=== PATIENT | female | born 1970 | race Caucasian/White ===

== ENCOUNTER 2019-05-27 17:10 | Emergency (ER) | payer MEDICARE ==
[~2019-05-27] VITALS: Ht 170.2 cm; Wt 90.9 kg
--- NOTE | 2019-05-27 17:15 | NUR ---
PT LEON ALMEIDA FROM [facility] FOR C/O FEVER, MALAISE, BODY ACHES, AND NECK PAIN X1 WEEK. 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 VSS PER EMS, HR 90s. PT AMBULATORY, A&OX4. PT DENIES ANY RECENT TRAVEL. DROPLET PRECAUTIONS IN PLACE.
--- NOTE | 2019-05-27 18:15 | NUR ---
PER ERP, PT DOES NOT NEED TO BE IN NEGATIVE PRESSURE ISOLATION.
[2019-05-27] MEDS ORDERED: IBUPROFEN 600 MG TABLET ONE (18:24)
[2019-05-27] MEDS ORDERED: ONDANSETRON ODT 4 MG ONE (18:24)
[2019-05-27] MEDS ORDERED: ACETAMINOPHEN 500 MG TABLET ONE (18:24)
[2019-05-27] MEDS ORDERED: ONDANSETRON ODT 4 MG PO ONE (18:30)
[2019-05-27] MEDS ORDERED: ACETAMINOPHEN 325 MG TABLET PO ONE (18:30)
[2019-05-27] MEDS ORDERED: IBUPROFEN 600 MG TABLET PO ONE (18:30)
--- NOTE | 2019-05-27 18:35 | NUR ---
PT MEDICATED PER ORDERS. 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
[2019-05-27 18:48] LABS: BASOPHILS # (AUTO) 0.01 x10^3/uL (0-0.1); BASOPHILS % (AUTO) 0 % (0-1); EOSINOPHILS % (AUTO) 0 % (1-7); LYMPHOCYTES # (AUTO) 0.86 x10^3/uL (1-3.4); LYMPHOCYTES % (AUTO) 13 % (22-44); MD NO; MEAN CORPUSCULAR HGB CONC 33.7 g/dL (32.4-35.8); MEAN CORPUSCULAR VOLUME 89.2 fL (80-100); MEAN PLATELET VOLUME 8.2 fL (7.4-10.4); MONOCYTES # (AUTO) 0.42 x10^3/uL (0.2-0.8); MONOCYTES % (AUTO) 6 % (2-9); NEUTROPHILS # (AUTO) 5.21 x10^3/uL (1.8-6.8); NEUTROPHILS % (AUTO) 80 % (42-75); PLATELET COUNT 251 x10^3/uL (130-400); RED BLOOD COUNT 5.21 x10^6/uL (3.82-5.3); RED CELL DISTRIBUTION WIDTH 13.9 % (9.6-15.2)
[2019-05-27 18:54] LABS: ALBUMIN 3.4 g/dL (3.4-5.0); ANION GAP 7 mmol/L (5-15); CALCIUM 8.4 mg/dL (8.5-10.1); CHLORIDE 106 mmol/L (98-107); CREATININE 0.71 mg/dL (0.55-1.02)
[2019-05-27 19:43] LABS: RAPID INFLUENZA A Negative (Negative); RAPID INFLUENZA B Negative (Negative)
--- NOTE | 2019-05-27 19:54 | NUR ---
ERP WAS IN FOR RECHECK.
--- NOTE | 2019-05-27 20:11 | NUR ---
PT REPORTS SIGNIFICANT DIZZINESS WHEN STANDING. ERP AT BS FOR RECHECK.
[2019-05-27] MEDS ORDERED: MECLIZINE CHEWABLE 25 MG TAB ONE (20:26)
[2019-05-27] MEDS ORDERED: MECLIZINE CHEWABLE 25 MG TAB PO ONE (20:30)
--- NOTE | 2019-05-27 20:35 | NUR ---
PT MEDICATED WITH MECLIZINE AND WATER & JUICE PROVIDED.
--- NOTE | 2019-05-27 21:24 | NUR ---
PT STATES SHE'S FEELING BETTER, LESS DIZZY. ABLE TO AMBULATE WITH STEADY GAIT. D/C INSTRUCTIONS, MEDS & F/U APPT RV'WD WITH PT, SHE VERBALIZES UNDERSTANDING. RX GIVEN X2. INSTRUCTED PT TO RETURN TO ED FOR ANY WORSENING SYMPTOMS. PT AMBULATED OUT, STATES FRIEND WILL PICK HER UP.
[2019-05-27 21:30] VITALS: BP 146/61
== END 2019-05-27 21:29 | disposition home or self-care (01) ==
LOC: ED 21:10
DX: R42 Dizziness and giddiness (principal); R51 Headache; B34.9 Viral infection, unspecified; M79.10 Myalgia, unspecified site; J45.909 Unspecified asthma, uncomplicated; Z90.89 Acquired absence of other organs; Z90.710 Acquired absence of both cervix and uterus
CPT/HCPCS: 36415; 71045; 80048; 82040; 85025; 87400; 93005; 99285; Q0162